=== PATIENT | male | born 1965 | race Caucasian/White ===

== ENCOUNTER 2017-04-03 09:15 | Emergency (ER) | payer BC, OTHER ==
[~2017-04-03] VITALS: Ht 162.6 cm; Wt 68.0 kg
[2017-04-03 09:19] VITALS: Ht 162.6 cm; Wt 68.0 kg
[2017-04-03] MEDS ORDERED: KETOROLAC 30 MG INJ IM STA (09:39)
--- NOTE | 2017-04-03 09:50 | ERD ---
ER Documentation Chief Complaint Date/Time DATE: 04/03/17 TIME: 09:42 Chief Complaint right knee pain since last night playing soccer HPI This is a 51 year old male presenting to the emergency department complaining of right knee pain and swelling status post twisting mechanism injury that occurred yesterday while playing soccer. He describes the pain as moderate to severe, locating it in the right medial aspect of the knee. He admits to difficulty ambulating. He denies taking any medications for this ROS All systems reviewed and are negative except as per history of present illness. Allergies Allergies: Coded Allergies: No Known Allergy (Unverified , 04/03/17) Physical Exam Vitals Vital Signs Date Time Temp Pulse Resp B/P Pulse Ox O2 Delivery O2 Flow Rate FiO2 04/03/17 09:19 97.9 82 18 118/85 97 Physical Exam General: WD/WN, in no apparent distress, non-toxic appearing HENT: NC/AT Eyes: Conjunctiva normal Neck: Supple Pulm: Clear to auscultation, normal labored breathing; no wheezing/rales/ rhonchi heard CV: Good capillary refill GI: Non-distended, no guarding Back: No masses Ext: TTP on the right medial aspect knee, mild to moderate swelling, restricted range of motion, +2 popliteal pulse Neuro: Moves on all fours Skin: intact Psych: Normal mood Procedures/MDM This is a 51-year-old male presenting to the emergency department complaining of right medial aspect knee pain status post twisting mechanism injury that occurred while playing soccer yesterday, this is likely a tendon versus ligamentous versus meniscus injury. I doubt that patient has any fracture or dislocation due to diagnostic testing. No evidence of compartment syndrome. An x-ray was done of the right knee and did not show any evidence of fracture dislocation. Patient was placed in a knee immobilizer. Patient is neurovascular intact throughout this whole encounter. Patient was given crutches for ambulating. Patient was given Toradol in the ED for pain. He stable to be discharged home to follow-up with an orthopedist in the next couple days. Discussed with him to return to the ER for any worsening sinus symptoms. Patient understands and agrees with this plan. Prescription for ibuprofen, RICE instructions were given. Departure Diagnosis: Primary Impression: Right knee pain Condition: Stable KATALINA HOFFMANN PA-C Apr 03, 2017 09:50
--- NOTE | 2017-04-03 10:48 | RADRPT ---
PROCEDURE: XR Knee. CLINICAL INDICATION: Right knee pain TECHNIQUE: 3 images of the right knee are available for review. COMPARISON: None available FINDINGS: There is no acute fracture. Alignment is normal. Joint spaces are preserved. Soft tissues are grossly unremarkable. IMPRESSION: 1. No radiographic evidence of acute osseous abnormality of the right knee. RPTAT: UU .Samir Escalante MD, MD Date Time Electronically viewed and signed by .Samir Escalante MD, on 04/03/2017 10:47 .K/
[2017-04-03] MEDS ORDERED: NAPR-688 PO (10:52)
== END 2017-04-03 11:05 | disposition home or self-care (01) ==
LOC: FTE 09:15
DX: M25.561 Pain in right knee (principal)
CPT/HCPCS: 29505; 73562; 96372; Z7502; J1885